=== PATIENT | male | born 1985 | race Caucasian/White ===

== ENCOUNTER → 2017-10-29 | Outpatient (CLI) | payer OTHER ==
--- NOTE | 2017-10-29 10:41 | MR ---
EXAMINATION TYPE: MR lumbar spine wo con DATE OF EXAM: 10/29/2017 COMPARISON: NONE HISTORY: Low back pain TECHNIQUE: T1 and T2 axial and sagittal images of the lumbar spine are submitted. There is marked r eduction in resolution significant artifact which limits the exam. FINDINGS: There is no abnormal signal seen within the visualized spinal cord or paraspinal soft tissu es. Gross alignment is anatomic. No compression deformities. Multilevel Schmorl's nodes are seen. At L1-2 there is no degenerative disc disease, disc herniation, canal stenosis or foraminal encroachm ent. At L2-3 there is mild loss of disc space. No Canal stenosis. Neural foramina remain patent. No disc h erniation. At L3-4 there is mild degenerative disc disease. Neural foramina patent. No canal stenosis or focal h erniation. At L4-5 there is disc desiccation mild hypertrophy of the facets. There is broad-based central, and c ircumferential disc bulging with mild to moderate bilateral foraminal encroachment. There is mild eff acement of thecal sac. 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 At L5-S1 there is no disc herniation or canal stenosis. No foraminal encroachment. IMPRESSION: 1. Broad-based and circumferential disc bulging L4-L5 with mild effacement of thecal sac and bilatera l mild to moderate foraminal encroachment greater on the right. Exam limited by extreme artifact.
== END | disposition home or self-care (01) ==
LOC: RADMRIMAIN 09:48
PROVIDERS: ATTEND Psychiatry & Neurology Neurology
DX: M51.26 Other intervertebral disc displacement, lumbar region (principal); R93.7 Abnormal findings on diagnostic imaging of other parts of musculoskeletal system
CPT/HCPCS: 72148